=== PATIENT | male | born 1980 | race Caucasian/White ===

== ENCOUNTER → 2016-10-15 | Outpatient (CLI) | payer BC, OTHER ==
[~2016-10-15] MED LIST: DUO-KAPS1 CAP PO; EFFEXOR-XR150 MG PO; LAMICTAL 100MG100 MG PO; LITHIUM 60600 MG/CAP; MAGNESIUM250 M1 PO; PRINIVIL10 MG PO; SEROQUEL 2525 MG/TAB PO; TESTOSTERONE25 MG/ML IM
== END ==
LOC: BHSO 16:10
DX: F31.74 Bipolar disorder, in full remission, most recent episode manic (principal)

== ENCOUNTER → 2017-01-13 | Outpatient (CLI) | payer BC, OTHER | LOC: BHSO 16:04 | DX: F31.73 Bipolar disorder, in partial remission, most recent episode manic (principal) ==

== ENCOUNTER → 2017-04-16 | Outpatient (CLI) | payer BC, OTHER | LOC: BHSO 16:19 | DX: F31.73 Bipolar disorder, in partial remission, most recent episode manic (principal) ==

== ENCOUNTER → 2017-09-17 | Outpatient (CLI) | payer BC | LOC: BHSO 16:19 | DX: F41.1 Generalized anxiety disorder (principal) | CPT/HCPCS: G0463 ==

== ENCOUNTER → 2017-12-31 | Outpatient (CLI) | payer BC | LOC: BHSO 15:21 | DX: F31.81 Bipolar II disorder (principal) | CPT/HCPCS: G0463 ==

== ENCOUNTER → 2018-03-03 | Outpatient (CLI) | payer BC | LOC: BHSO 16:17 | DX: F31.31 Bipolar disorder, current episode depressed, mild (principal) ==

== ENCOUNTER → 2018-04-07 | Outpatient (CLI) | payer BC | LOC: BHSO 07:59 | DX: F31.75 Bipolar disorder, in partial remission, most recent episode depressed (principal) | CPT/HCPCS: G0463 ==

== ENCOUNTER → 2018-06-01 | Outpatient (CLI) | payer BC | LOC: BHSO 08:04 | DX: F31.75 Bipolar disorder, in partial remission, most recent episode depressed (principal) | CPT/HCPCS: G0463 ==

== ENCOUNTER → 2018-06-27 | Outpatient (CLI) | payer BC | LOC: BHSO 08:24 | DX: F31.75 Bipolar disorder, in partial remission, most recent episode depressed (principal) | CPT/HCPCS: G0463 ==

== ENCOUNTER → 2018-08-19 | Outpatient (CLI) | payer BC | LOC: BHSO 08:27 | DX: F31.75 Bipolar disorder, in partial remission, most recent episode depressed (principal) | CPT/HCPCS: G0463 ==

== ENCOUNTER 2021-08-01 16:16 | Emergency (ER) | payer BC ==
[~2021-08-01] VITALS: Ht 182.9 cm; Wt 136.4 kg
[2021-08-01 16:17] VITALS: TEMP 99
[2021-08-01 17:05] LABS: BASO % 0.4 % (0.0-2.0); EOS # 0.1 K/mm3 (0.0-0.7); EOS % 0.8 % (0.0-4.0); GRAN # 7.6 K/mm3 (1.4-6.5); GRAN % 67.7 % (42.2-75.2); HEMATOCRIT 49.5 % (42.0-52.0); HEMOGLOBIN 16.7 g/dl (13.5-18.0); LYMPH # 2.8 K/mm3 (1.2-3.4); LYMPH % 24.8 % (20.0-51.0); MEAN CELL VOLUME 88 fl (80.0-100.0); MEAN CORPUSCULAR HEMOGLOBIN 30 pg (27-31); MEAN CORPUSCULAR HGB CONC 34 g/dl (33.0-37.0); MEAN PLATELET VOLUME 9.4 fl (7.4-10.4); MONO # 0.7 K/mm3 (0.1-0.6); MONO % 5.9 % (1.7-9.3); PLATELET COUNT 176 K/mm3 (130-400); RED BLOOD COUNT 5.61 M/mm3 (4.20-5.60); REDCELL DISTRIBUTION WIDTH-CV 14.7 % (11.5-14.5)
[2021-08-01 17:19] LABS: ALBUMIN 3.9 gm/dL (3.5-5.0); BILIRUBIN,TOTAL 0.6 mg/dL (0.2-1.2); CALCIUM 8.5 mg/dL (8.4-10.2); CREATININE, serum 1.14 mg/dL (0.72-1.25); POTASSIUM 4.9 mmol/L (3.5-4.5); TOTAL PROTEIN 6.7 gm/dL (6.2-8.1)
[2021-08-01] MEDS ORDERED: CEPHALEXIN500 M1 PO (17:58)
[2021-08-01 18:39] VITALS: BP 120/59; PULSE 85
== END 2021-08-01 18:39 | disposition home or self-care (01) ==
LOC: COL.ER 16:16
PROVIDERS: Nurse Practitioner
DX: S71.131A Puncture wound without foreign body, right thigh, initial encounter (principal); E11.9 Type 2 diabetes mellitus without complications; I10 Essential (primary) hypertension; F31.9 Bipolar disorder, unspecified; Z79.899 Other long term (current) drug therapy; W32.0XXA Accidental handgun discharge, initial encounter
CPT/HCPCS: J0690; Q9967